=== PATIENT | male | born 1985 | race Caucasian/White ===

== ENCOUNTER 2018-07-17 20:57 | Emergency (ER) | payer SELFPAY ==
[~2018-07-17] VITALS: Ht 172.7 cm; Wt 72.7 kg
[2018-07-17 21:01] VITALS: Ht 172.7 cm; Wt 72.7 kg
[2018-07-17] MEDS ORDERED: TORADOL10 MG PO (21:55)
[2018-07-17 22:08] VITALS: BP 120/81
== END 2018-07-18 00:36 | disposition home or self-care (01) ==
LOC: D.ER 20:57
DX: R07.89 Other chest pain (principal); F17.200 Nicotine dependence, unspecified, uncomplicated

== ENCOUNTER 2018-12-13 13:06 | Emergency (ER) | payer MEDICAID ==
[~2018-12-13] VITALS: Ht 172.7 cm; Wt 72.4 kg
[~2018-12-13 13:06] MED LIST: TORADOL10 MG PO
[2018-12-13 13:08] VITALS: Ht 172.7 cm; Wt 72.4 kg
[2018-12-13] MEDS ORDERED: SILVADENE20 GM TP (13:53)
[2018-12-13] MEDS ORDERED: TORADOL10 MG PO (13:53)
[2018-12-13] MEDS ORDERED: EMLA CREAM 30 G30 G1 TOPICAL (13:53)
[2018-12-13 14:26] VITALS: BP 128/80
== END 2018-12-13 14:26 | disposition home or self-care (01) ==
LOC: D.ER 13:06
DX: L55.0 Sunburn of first degree (principal)

== ENCOUNTER 2019-03-28 21:57 | Emergency (ER) | payer SELFPAY ==
[~2019-03-28] VITALS: Ht 172.7 cm; Wt 75.0 kg
[~2019-03-28 21:57] MED LIST changes: +EMLA CREAM 30 G30 G1 TOPICAL; +SILVADENE20 GM TP
[2019-03-28 22:15] VITALS: Ht 172.7 cm; Wt 75.0 kg
[2019-03-28] MEDS ORDERED: OMEPRAZOLE20 M1 PO (22:22)
[2019-03-28 22:52] LABS: BASOPHILS 0.5 % (0-2); EOSINOPHILS 8.1 % (0-7); HEMATOCRIT 45.3 % (42.0-54.0); HEMOGLOBIN 15.9 g/dL (13.5-17.5); IMMATURE GRANULOCYTES 0.2 % (0-5); LYMPHOCYTES 26.2 % (15-50); MCH 31.5 pg (26.0-34.0); MCHC 35.1 g/dL (31.0-37.0); MCV 89.9 fL (80.0-100.0); MONOCYTES 10.6 % (2-11); NEUTROPHILS 54.4 % (40-80); PLATELET COUNT 214 10x3/uL (130-400); RBC 5.04 10x6/uL (4.20-6.10); RDW 13.6 % (11.5-14.5); WBC 8.4 10x3/uL (4.8-10.8)
[2019-03-28 23:18] LABS: ANION GAP 11.8 mmol/L (8-16); CALCIUM 8.1 mg/dL (8.5-10.1); CARBON DIOXIDE 27.2 mmol/L (21.0-32.0); CREATININE - SERUM 1.2 mg/dL (0.6-1.3)
[2019-03-28 23:24] LABS: ALBUMIN 3.7 g/dL (3.4-5.0); BILIRUBIN - TOTAL 0.57 mg/dL (0.2-1.3)
[2019-03-28 23:43] LABS: APPEARANCE CLEAR (CLEAR); BILIRUBIN NEGATIVE (NEGATIVE); COLOR YELLOW (YELLOW); GLUCOSE NEGATIVE (NEGATIVE); KETONE NEGATIVE (NEGATIVE); NITRITE NEGATIVE (NEGATIVE); PROTEIN TRACE mg/dL (NEGATIVE)
[2019-03-28 23:44] LABS: BACTERIA NONE SEEN /hpf (NEGATIVE); EPITHELIAL CELLS NSEEN /hpf (0-5); RED CELLS - URINE 0-5 /hpf (0-5); WHITE CELLS - URINE 0-5 /hpf (NEGATIVE)
[2019-03-29 00:18] VITALS: BP 120/84
== END 2019-03-29 00:18 | disposition home or self-care (01) ==
LOC: D.ER 21:57
PROVIDERS: Family Medicine
DX: R10.9 Unspecified abdominal pain (principal); K21.9 Gastro-esophageal reflux disease without esophagitis

== ENCOUNTER 2020-09-09 21:04 | Emergency (ER) | payer SELFPAY ==
[~2020-09-09] VITALS: Ht 172.7 cm; Wt 72.7 kg
[~2020-09-09 21:04] MED LIST changes: +OMEPRAZOLE20 M1 PO
[2020-09-09 21:29] VITALS: Ht 172.7 cm; Wt 72.7 kg
[2020-09-09 22:33] LABS: BASOPHILS 0.4 % (0-2); EOSINOPHILS 3.3 % (0-7); HEMATOCRIT 50.1 % (42.0-54.0); HEMOGLOBIN 17.2 g/dL (13.5-17.5); IMMATURE GRANULOCYTES 0.2 % (0-5); LYMPHOCYTE ABS# 1.07 10x3/uL (1.32-3.57); LYMPHOCYTES 9.4 % (15-50); MCH 30.9 pg (26.0-34.0); MCHC 34.3 g/dL (31.0-37.0); MCV 90.1 fL (80.0-100.0); MEAN PLATELET VOLUME 11.7 fL (7.4-10.4); MONOCYTES 7.5 % (2-11); NEUTROPHIL ABS# 8.99 10x3/uL (1.78-5.38); NEUTROPHILS 79.2 % (40-80); PLATELET COUNT 213 10x3/uL (130-400); RBC 5.56 10x6/uL (4.20-6.10); RDW 13.3 % (11.5-14.5); WBC 11.4 10x3/uL (4.8-10.8)
[2020-09-09 22:49] LABS: ANION GAP 14.5 mmol/L (8-16); CALCIUM 9.3 mg/dL (8.5-10.1); CARBON DIOXIDE 28.7 mmol/L (21.0-32.0); CREATININE - SERUM 1.2 mg/dL (0.6-1.3); POTASSIUM - SERUM 4.2 mmol/L (3.5-5.1)
[2020-09-09 22:55] LABS: ALBUMIN 4.3 g/dL (3.4-5.0); BILIRUBIN - TOTAL 0.49 mg/dL (0.2-1.3); PROTEIN - SERUM 7.6 g/dL (6.4-8.2)
[2020-09-09 23:24] LABS: BILIRUBIN NEGATIVE (NEGATIVE); KETONE NEGATIVE (NEGATIVE); NITRITE NEGATIVE (NEGATIVE); UROBILINOGEN NORMAL mg/dL (< 2)
[2020-09-09 23:26] LABS: BACTERIA NONE SEEN HPF (NONE SEEN); SQUAMOUS EPITHELIAL 0-5 HPF (0-4); UDS - AMPHET NEGATIVE QUAL (NEGATIVE); UDS - BARB NEGATIVE QUAL (NEGATIVE); UDS - BENZO NEGATIVE QUAL (NEGATIVE); UDS - COCAINE NEGATIVE QUAL (NEGATIVE); UDS - OPIATE NEGATIVE QUAL (NEGATIVE); UDS - PCP NEGATIVE QUAL (NEGATIVE); UDS - THC NEGATIVE QUAL (NEGATIVE); WHITE CELLS - URINE 0-5 HPF (0-1)
[2020-09-10] MEDS ORDERED: FLOMAX0.4 MG PO (00:02)
[2020-09-10] MEDS ORDERED: HYDROCODONE-AC1 EAC2 PO (00:02)
[2020-09-10 00:45] VITALS: BP 118/82
== END 2020-09-10 00:46 | disposition home or self-care (01) ==
LOC: D.ER 21:04
PROVIDERS: Family Medicine
DX: N20.1 Calculus of ureter (principal); R10.32 Left lower quadrant pain